=== PATIENT | female | born 1955 | race Caucasian/White ===

== ENCOUNTER 2023-09-05 12:49 | Day surgery (SDC) | payer MEDICARE ==
[~2023-09-05] VITALS: Ht 162.6 cm; Wt 71.5 kg
[2023-09-05 15:00] VITALS: BP 115/67
== END 2023-09-05 15:17 | disposition home or self-care (01) ==
LOC: ORSCSDS 12:49
PROVIDERS: Internal Medicine Gastroenterology
PROC: 0DBP8ZX Excision of Rectum, Via Natural or Artificial Opening Endoscopic, Diagnostic (ICD-10-PCS; principal; 2023-09-05 14:30)
DX: R19.4 Change in bowel habit (principal); C7A.026 Malignant carcinoid tumor of the rectum; D12.8 Benign neoplasm of rectum; K57.30 Diverticulosis of large intestine without perforation or abscess without bleeding; Z80.0 Family history of malignant neoplasm of digestive organs; Z86.010 Personal history of colon polyps; Z87.891 Personal history of nicotine dependence
CPT/HCPCS: 88305; 88341; 88342; J0461; J1980; J2001; J2405; J2704; J7120; Q9968

== ENCOUNTER 2024-10-28 14:53 | Emergency (ER) | payer MEDICARE ==
[~2024-10-28] VITALS: Ht 162.6 cm; Wt 72.6 kg
[2024-10-28] MEDS ORDERED: Famotidine 10 MG/ML 2ML Vial IV ONE (15:10)
[2024-10-28] MEDS ORDERED: EPINEPhrine HCl 1 MG/ML 1ML Amp IM ONE (15:10)
[2024-10-28 17:45] VITALS: BP 135/77
== END 2024-10-28 19:14 | disposition home or self-care (01) ==
LOC: ER 14:53
DX: T88.6XXA Anaphylactic reaction due to adverse effect of correct drug or medicament properly administered, initial encounter (principal); T50.8X5A Adverse effect of diagnostic agents, initial encounter; C7A.026 Malignant carcinoid tumor of the rectum; Z88.5 Allergy status to narcotic agent; Z91.041 Radiographic dye allergy status; Z88.1 Allergy status to other antibiotic agents; Z88.8 Allergy status to other drugs, medicaments and biological substances
CPT/HCPCS: 71260; 74177; 96372-59; 96374; 99284-25; J0171; Q9967